=== PATIENT | male | born 1985 | race Caucasian/White ===

== ENCOUNTER 2021-06-07 19:06 | Emergency (ER) | payer MEDICAID, SELFPAY ==
[2021-06-07 19:07] VITALS: BP 136/91; PULSE 71; RESP 18; TEMP 36.2; O2SAT 98; BMI 23.0
--- NOTE | 2021-06-07 19:39 | PCM.HP.STD ---
HPI - General General Date of Admission: 06/07/21 Date of Service: 06/07/21 Chief Complaint: Acute opiate withdrawal. HPI Narrative The patient is a 35 y/o M w/ PMHx: Tobacco use, Polysubstance abuse w/ Hx prior IVDA currently snorting (Previously on subutex x 2 months until 1 week ago but took himself off but then transitioned to Fentanyl, Fentanyl, Coke) who presents to the [facility] ED on 06/07/21 w/ noted acute opiate withdrawal onset starting on day of ED presentation following last dose early on day of presentation with abdominal pain/cramping, generalized body aches and pains, rhinorrhea, piloerection, fatigue, restless leg, sweating, yawning. Patient interested in attaining clean status. Work-up in the ED included T 97.1, HR 71, BP 136/91, RR 18, 98% on RA [facility] Medical History Polysubstance abuse Tobacco use Medical History no medical history Allergy/AdvReac Type Severity Reaction Status Date / Time almond Allergy Angioedema Verified 06/07/21 19:09 Surgical History no surgical history Social History Smoking Status: Current every day smoker tobacco type: cigarettes Vital Signs Vital Signs Vital Signs: 06/07/21 19:07 Temperature 97.1 F L Temperature Source Temporal Pulse Rate 71 Respiratory Rate 18 Blood Pressure 136/91 H Blood Pressure Mean 106 Pulse Ox 98 Oxygen Delivery Method Room Air Weight Weight: 165 lb Body Mass Index (BMI) 23.0 Assessment & Plan Assessment/Plan (1) Opiate withdrawal: PLAN: The patient is a 35 y/o M w/ PMHx: Tobacco use, Polysubstance abuse (Heroin, Fentanyl, Coke) who presents to the [facility] ED on 06/07/21 w/ noted acute opiate withdrawal onset starting on day of ED presentation following last dose early on day of presentation. #1. Acute Opiate Withdrawal: Will admit to [facility], routine labs including CBC, CMP, urine for drug screen obtained in the ED and pending upon admission, will initiate and continue on protocol with tapering course of Subutex, as needed tylenol, ibuprofen, bowel regimen, gabapentin, Bentyl, Vistaril, methocarbamol, clonidine, PRN nightly trazodone for insomnia, IV fluids, IV antiemetics. Once patient clinically improved and completion of taper nearing will plan consultation with case management for transition to next level of rehabilitation care. #2. Polysubstance Abuse: Patient currently not candidate for hep C treatment currently as needs to be clean, sober x 6 months, documented attendance NA or AA meetings, counseling and ongoing negative drug screens. Will obtain HIV, hepatitis panel. #3. Tobacco Abuse: Encouraged cessation, inpatient consultation per RT, NR if desired. #4. DVT prophylaxis: Low risk, encourage ambulation.
--- NOTE | 2021-06-07 19:50 | EX.ED.DYSGE1 ---
HPI History of Present Illness Chief Complaint: Substance Abuse Informant: patient Narrative Narrative: Patient comes here requesting detox from heroin and fentanyl. I find that the patient was on Subutex for about 2 months. He was trying to get off Subutex. He was using heroin and fentanyl to try to wean off. He occasionally used cocaine. He does not use alcohol. Not suicidal homicidal. He snorts and does not inject. He has injected in the past but it has been many many years. He has no physical complaints. PFSH PFSH Medical History Polysubstance abuse Tobacco use Medical History no medical history Home Medications clonidine HCl 0.1 mg PO TID PRN #10 tab 06/07/21 [Rx Last Taken Unknown] hydroxyzine pamoate [Vistaril] 25 mg PO TID PRN #10 cap 06/07/21 [Rx Last Taken Unknown] ondansetron 4 mg PO Q8H PRN #10 tab 06/07/21 [Rx Last Taken Unknown] Allergy/AdvReac Type Severity Reaction Status Date / Time almond Allergy Angioedema Verified 06/07/21 19:09 Surgical History no surgical history Social History Smoking Status: Current every day smoker tobacco type: cigarettes ROS ROS ED Constitutional Constitutional ED: Reports subjective; Denies fever(s) Eyes Eyes: Denies blurry vision ENT ENT ED: Reports rhinorrhea; Denies sore throat Cardiovascular Cardiovascular: Denies chest pain Respiratory/Chest Respiratory/Chest: Denies dyspnea Gastrointestinal Gastrointestinal: Denies diarrhea, nausea or vomiting Genitourinary Genitourinary ED: Denies dysuria Musculoskeletal Musculoskeletal: Reports myalgias; Denies arthralgias Integumentary Denies rash Neurologic Neurologic: Denies headache(s), paresthesias or weakness Psychiatric Psychiatric: Reports anxiety; Denies depression, suicidal ideation or suicidal thoughts Endocrine Endocrinology: Denies polydipsia or polyuria Allergic/Immunologic Allergic/Immunologic ED: Denies mouth swelling or urticaria EXAM Physical Exam Const Vital Signs: 06/07/21 19:07 Temperature 97.1 F L Temperature Source Temporal Pulse Rate 71 Respiratory Rate 18 Blood Pressure 136/91 H Blood Pressure Mean 106 Pulse Ox 98 Oxygen Delivery Method Room Air Positive well nourished and well developed General Appearance ED: well developed and NAD; Negative for cyanotic or diaphoretic HEENT Reports moist mucous membranes Negative for trauma Eyes General Eye ED: Negative for pale conjunctiva or scleral icterus Neck no JVD Chest Wall inspection of chest normal Resp normal respiratory effort and clear to auscultation bilaterally Cardio regular rate, regular rhythm and no murmurs GI normal to inspection, nondistended, normoactive bowel sounds and non-tender Palpation: soft Back/Spine no CVA tenderness Extremity normal to inspection Neuro oriented x3 Sensorium / Orientation: alert Psych mental status grossly normal Skin no rashes or lesions noted MDM MDM MDM Narrative Medical decision making narrative: I talked to our hospitalist. I find out that we use Subutex here for opioid withdrawal. I talked to the patient again. He really does not want to be on Subutex. I told him I can write him a prescription for some clonidine Zofran and Vistaril. This will help with his symptoms. He is not suicidal or homicidal. He is comfortable with this plan. He states he has been through withdrawal a lot. His goal is to actually get off all of the meds. I explained that if he needs further help he is welcome to come in at any time. Discharge Plan Triage Chief Complaint: Substance Abuse ED Provider: Mayito Boykin Dx/Rx/DC Orders Clinical Impression: Opiate withdrawal Instructions: ED Opioid Withdrawal Prescriptions: New clonidine HCl 0.1 mg tablet 0.1 mg PO TID PRN (Reason: withdrawal) Qty: 10 RF: 0 hydroxyzine pamoate [Vistaril] 25 mg capsule 25 mg PO TID PRN (Reason: nausea and vomiting) Qty: 10 RF: 0 ondansetron 4 mg tablet,disintegrating 4 mg PO Q8H PRN (Reason: nausea and vomiting) Qty: 10 RF: 0 Primary Care Provider: Care Physician,No Primary Referrals: Yue Ivan MD [STAFF PHYSICIAN] - As Needed Care Physician,No Primary [Primary Care Provider] - Disposition Disposition: Home, Self Care
== END 2021-06-07 20:00 | disposition home or self-care (01) ==
PROVIDERS: Emergency Provider Emergency Medicine; Visit Provider Emergency Medicine
DX: F11.23 Opioid dependence with withdrawal (principal); F17.210 Nicotine dependence, cigarettes, uncomplicated
CPT/HCPCS: 99282